=== PATIENT | female | born 1990 | race African-American/Black ===

== ENCOUNTER 2017-04-26 23:43 | Emergency (ER) | payer SELFPAY ==
[~2017-04-26] VITALS: Ht 165.1 cm; Wt 101.0 kg
[~2017-04-26 23:43] MED LIST: NIZORAL 2% CREA15 GM TP; NO HOME MEDS; ZITHROMAX Z-PA250 MG PO
[2017-04-27 02:37] VITALS: BP 118/72
[2017-04-27 13:44] LABS: TREPONEMA ANTIBODY NEGATIVE (NEGATIVE)
[2017-04-28 13:36] LABS: CHLAMYDIA TRACHOMATIS NEGATIVE; NEISSERIA GONORRHOEAE NEGATIVE
== END 2017-04-27 02:38 | disposition home or self-care (01) ==
LOC: EXP 23:43 → EME 23:43 → EXP 04-27 02:38
PROVIDERS: Physician Assistant
DX: Z20.2 Contact with and (suspected) exposure to infections with a predominantly sexual mode of transmission (principal); Z11.3 Encounter for screening for infections with a predominantly sexual mode of transmission; Z72.0 Tobacco use
CPT/HCPCS: 86780; 87491; 87591; 99281; 99284